=== PATIENT | female | born 1945 | race Caucasian/White ===

== ENCOUNTER → 2022-10-25 16:07 | Outpatient (BNVA) | payer MEDICARE, OTHER, SELFPAY | PROVIDERS: PCP Internal Medicine; Visit Provider Psychiatry & Neurology Psychiatry | DX: F32.89 Other specified depressive episodes (principal); F10.91 Alcohol use, unspecified, in remission; G47.00 Insomnia, unspecified | CPT/HCPCS: 90833; 99212 ==

== ENCOUNTER 2023-03-23 13:29 | Outpatient (AMB) | payer MEDICARE, OTHER, SELFPAY ==
--- NOTE | 2023-03-23 13:59 | MHC.OFFVISPS ---
Intake Intake Visit Reasons: depression Allergies sulfamethoxazole [From Bactrim] Allergy (Intermediate, Verified 10/25/22 15:15) Swelling trimethoprim [From Bactrim] Allergy (Intermediate, Verified 10/25/22 15:15) Swelling Medication List - Last Reconciled 03/23/23 by Juan Junior MD atorvastatin 80 mg PO DAILY bupropion HCl 200 mg PO QAM clonazepam 0.5 mg PO BEDTIME gabapentin 100 - 300 mg (1 - 3 x 100 mg) PO BEDTIME pantoprazole 40 mg PO DAILY ramelteon (Rozerem) 8 mg PO BEDTIME 90 days rizatriptan mg PO HPI- Psychiatric Chief Complaint: depression HPI Narrative: The patient continues to do quite well able to enjoy things focus concentrate gets along quite well with her . She has hobbies that she enjoys has remained sober for many years no significant mood episodes. Does have chronic insomnia that has not responded to multiple behavioral and medication interventions she has managed to live with this and work around at. 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 did respond somewhat to gabapentin Past Psychiatric History: Past history of depression chronic sleep disorder question history of mild hypomania Mental Status Exam Mental Status Exam Narrative: Mental Status Exam Narrative: Appearance: Casually dressed Behavior: Cooperative appropriate psychomotor: Within normal limits Speech: Normal volume and prosody Thought proccess logical and goal-directed Thought content: Future oriented no self-harming thoughts feels grateful about her life Mood: Euthymic Affect: Appropriate to mood full affect SI:denies HI:denies VH/AH:none Delusions: None Insight/judgment: Good insight and judgment Memory/cog: Intact Assessment and Plan Assessment & Plan (1) Depressive disorder, atypical: Status: Acute Code(s): F32.89 - Other specified depressive episodes (2) Insomnia disorder: Status: Acute Code(s): G47.00 - Insomnia, unspecified Plan Given discussed issues related to sleep hygiene behavioral management. We have discussed this previously including not staying in bed if not fall asleep. We discussed the use of rozerem a melatonin analog. Patient's quality of life generally good short-acting Wellbutrin in the morning will no mood cycling able to enjoy things could motivation Medications: New ramelteon (Rozerem) 8 mg PO BEDTIME 90 tabs 1RF 90 days Refilled bupropion HCl 200 mg PO QAM 90 tabs 1RF clonazepam 0.5 mg PO BEDTIME 90 tabs 1RF Counseling and coordination of Care Pt. Self Management counseling: Exercise, Maintenance-social rhythm and Sleep hygiene Diagnosis and Prognosis Counseling: Adequacy of current interventions Details: I spent [38] minutes reviewing the record, seeing the patient and documenting in the medical record. Counseling provided to the patient/caregiver as outlined below. Addressed patient/caregiver concerns regarding current medication regime including effective adherence. Addressed patient/caregiver concerns regarding diagnosis and prognosis including accuracy of diagnosis, prognosis over time, impact of diagnosis. Addressed patient/caregiver concerns regarding impact of recent stressors. [facility] Medical History (Updated 10/25/22 @ 21:50 by Juan Junior MD) Alcohol use disorder in remission Depressive disorder, atypical Insomnia disorder Social History: Patient is retired nurse Substance History: Past history of alcohol dependence Coding Level of Care Code Est Pt Level 3 (08950) Therapy 30m w/E&M (90417) Diagnoses Depressive disorder, atypical F32.89 Insomnia disorder G47.00
== END 2023-03-23 14:19 | disposition home or self-care (01) ==
LOC: HO.HOP 13:29
PROVIDERS: PCP Internal Medicine; Visit Provider Psychiatry & Neurology Psychiatry
DX: F32.89 Other specified depressive episodes (principal); G47.00 Insomnia, unspecified
CPT/HCPCS: 90833; 99213

== ENCOUNTER → 2023-03-23 13:29 | Outpatient (BNVA) | payer MEDICARE, OTHER, SELFPAY | PROVIDERS: PCP Internal Medicine; Visit Provider Psychiatry & Neurology Psychiatry | DX: F32.89 Other specified depressive episodes (principal); G47.00 Insomnia, unspecified; K14.6 Glossodynia | CPT/HCPCS: 90833; 99212 ==

== ENCOUNTER 2023-09-14 14:15 | Outpatient (AMB) | payer MEDICARE, OTHER, SELFPAY ==
--- NOTE | 2023-09-14 14:32 | MHC.OFFVISPS ---
Intake Intake Visit Reasons: DEPRESSION Allergies sulfamethoxazole [From Bactrim] Allergy (Intermediate, Verified 10/25/22 15:15) Swelling trimethoprim [From Bactrim] Allergy (Intermediate, Verified 10/25/22 15:15) Swelling Medication List - Last Reconciled 09/14/23 by Juan Junior MD atorvastatin 80 mg PO DAILY bupropion HCl 200 mg PO QAM clonazepam 0.5 mg PO BEDTIME gabapentin 100 - 300 mg (1 - 3 x 100 mg) PO BEDTIME gabapentin 300 mg PO DAILY pantoprazole 40 mg PO DAILY ramelteon (Rozerem) 8 mg PO BEDTIME 90 days rizatriptan mg PO HPI- Psychiatric Chief Complaint: DEPRESSION HPI Narrative: Pt seen in f/u mood stable HAS A NUMBER OF ACTIVITIES THAT SHE DOES ON A REGULAR BASIS GETS ALONG QUITE WELL WITH HER . Patient has chronic insomnia tends not to use sleep hygiene. The patient is on Wellbutrin with good effect did not try prescription melatonin analog does take gabapentin at bed time intermittent. She has over the past couple of years developed burning mouth syndrome gabapentin can be helpful with this Past Psychiatric History: Past history of depression chronic sleep disorder question history of mild hypomania Mental Status Exam Mental Status Exam Narrative: Mental Status Exam Narrative: Appearance: Casually dressed Behavior: Cooperative appropriate psychomotor: Within normal limits Speech: Normal volume and prosody Thought proccess logical and goal-directed Thought content: Future oriented no self-harming thoughts feels grateful about her life Mood: Euthymic Affect: Appropriate to mood full affect SI:denies HI:denies VH/AH:none Delusions: None Insight/judgment: Good insight and judgment Memory/cog: Intact Assessment and Plan Assessment & Plan (1) Alcohol use disorder in remission: Status: Acute Code(s): F10.91 - Alcohol use, unspecified, in remission (2) Depressive disorder, atypical: Status: Acute Code(s): F32.89 - Other specified depressive episodes (3) Insomnia disorder: Status: Acute Code(s): G47.00 - Insomnia, unspecified Plan Patient stable clear sensorium no significant change in cognitive status over time continue low-dose clonazepam Wellbutrin patient has been sober for many years encouraged appropriate sleep hygiene Counseling and coordination of Care Pt. Self Management counseling: Breathing and Sleep hygiene Details-Self Mgmt counseling: Reviewed sleep hygiene recommendations Details: I spent [37 minutes reviewing the record, seeing the patient and documenting in the medical record. Counseling provided to the patient/caregiver as outlined below. Addressed patient/caregiver concerns regarding current medication regime including effective adherence. Addressed patient/caregiver concerns regarding diagnosis and prognosis including accuracy of diagnosis, prognosis over time, impact of diagnosis. Addressed patient/caregiver concerns regarding impact of recent stressors. [facility] Medical History (Updated 10/25/22 @ 21:50 by Juan Junior MD) Alcohol use disorder in remission Depressive disorder, atypical Insomnia disorder Social History: Patient is retired nurse Substance History: Past history of alcohol dependence Coding Level of Care Code Est Pt Level 3 (50830) Therapy 30m w/E&M (69088) Diagnoses Alcohol use disorder in remission F10.91 Depressive disorder, atypical F32.89 Insomnia disorder G47.00
== END 2023-09-14 14:55 | disposition home or self-care (01) ==
LOC: HO.HOP 14:15
PROVIDERS: PCP Internal Medicine; Visit Provider Psychiatry & Neurology Psychiatry
DX: F10.91 Alcohol use, unspecified, in remission (principal); F32.89 Other specified depressive episodes; G47.00 Insomnia, unspecified
CPT/HCPCS: 90833; 99213

== ENCOUNTER → 2023-09-14 14:15 | Outpatient (BNVA) | payer MEDICARE, OTHER, SELFPAY | PROVIDERS: PCP Internal Medicine; Visit Provider Psychiatry & Neurology Psychiatry | DX: F32.89 Other specified depressive episodes (principal); G47.00 Insomnia, unspecified; F10.91 Alcohol use, unspecified, in remission | CPT/HCPCS: 90833; 99212 ==

== ENCOUNTER 2024-02-01 13:27 | Outpatient (AMB) | payer MEDICARE, OTHER, SELFPAY ==
--- NOTE | 2024-02-01 14:35 | A.OFFPSYCH_ITS ---
Intake Intake Visit Reasons: depression Allergies sulfamethoxazole [From Bactrim] Allergy (Intermediate, Verified 10/25/22 15:15) Swelling trimethoprim [From Bactrim] Allergy (Intermediate, Verified 10/25/22 15:15) Swelling HPI- Psychiatric Chief Complaint: depression HPI Narrative: Patient seen psychiatric follow-up. 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 Patient's social active in the [employer] social with her Past Psychiatric History: Past history of depression chronic sleep disorder question history of mild hypomania Mental Status Exam Mental Status Exam Narrative: Mental Status Exam Narrative: Appearance: Casually dressed Behavior: Cooperative appropriate psychomotor: Within normal limits Speech: Normal volume and prosody Thought proccess logical and goal-directed Thought content: Future oriented no self-harming thoughts feels grateful about her life Mood: Euthymic Affect: Appropriate to mood full affect SI:denies HI:denies VH/AH:none Delusions: None Insight/judgment: Good insight and judgment Memory/cog: Intact Assessment and Plan Assessment & Plan (1) Alcohol use disorder in remission: Status: Acute Code(s): F10.91 - Alcohol use, unspecified, in remission (2) Insomnia disorder: Status: Acute Code(s): G47.00 - Insomnia, unspecified (3) Depressive disorder, atypical: Status: Acute Code(s): F32.89 - Other specified depressive episodes Plan Patient quite stable no new medical problems. Continue to encourage socialization we try to lower clonazepam over time try and decrease 0.25 mg patient quite happy in life getting good satisfaction Medications: Changed From clonazepam 0.5 mg PO BEDTIME 90 tabs 1RF To clonazepam 0.25 - 0.5 mg (0.5 - 1 x 0.5 mg) PO BEDTIME PRN 90 tabs 1RF insomnia 90 days Refilled bupropion HCl SR 200 mg PO QAM 90 tabs 1RF clonazepam 0.25 - 0.5 mg (0.5 - 1 x 0.5 mg) PO BEDTIME PRN 90 tabs 1RF insomnia 90 days ramelteon (Rozerem) 8 mg PO BEDTIME 90 tabs 1RF 90 days bupropion HCl SR 200 mg PO QAM 90 tabs 1RF Counseling and coordination of Care Details-Self Mgmt counseling: Continue to be social and engaged future oriented enjoys multiple hobbies Medication management counseling: Effectiveness and Side effects Diagnosis and Prognosis Counseling: Accuracy of diagnosis and Adequacy of current interventions Details: I spent [33] minutes reviewing the record, seeing the patient and documenting in the medical record. Counseling provided to the patient/caregiver as outlined below. Addressed patient/caregiver concerns regarding current medication regime including effective adherence. Addressed patient/caregiver concerns regarding diagnosis and prognosis including accuracy of diagnosis, prognosis over time, impact of diagnosis. Addressed patient/caregiver concerns regarding impact of recent stressors. [facility] Medical History (Updated 10/25/22 @ 21:50 by Juan Junior MD) Alcohol use disorder in remission Depressive disorder, atypical Insomnia disorder Social History: Patient is retired nurse Substance History: Past history of alcohol dependence Coding Level of Care Code Est Pt Level 3 (25265) Therapy 30m w/E&M (55898) Diagnoses Alcohol use disorder in remission F10.91 Insomnia disorder G47.00 Depressive disorder, atypical F32.89
== END 2024-02-01 16:00 | disposition home or self-care (01) ==
LOC: HO.HOP 13:27
PROVIDERS: PCP Internal Medicine; Visit Provider Psychiatry & Neurology Psychiatry
DX: F10.91 Alcohol use, unspecified, in remission (principal); G47.00 Insomnia, unspecified; F32.89 Other specified depressive episodes
CPT/HCPCS: 90833; 99213

== ENCOUNTER → 2024-02-01 13:27 | Outpatient (BNVA) | payer MEDICARE, OTHER, SELFPAY | PROVIDERS: PCP Internal Medicine; Visit Provider Psychiatry & Neurology Psychiatry | DX: F32.89 Other specified depressive episodes (principal); F10.91 Alcohol use, unspecified, in remission; G47.00 Insomnia, unspecified; Z79.899 Other long term (current) drug therapy | CPT/HCPCS: 99212 ==

== ENCOUNTER 2024-11-12 12:08 | Outpatient (AMB) | payer MEDICARE, OTHER, SELFPAY ==
--- NOTE | 2024-11-12 14:04 | MHC.OFFVISPS ---
Intake Intake Visit Reasons: depression Allergies sulfamethoxazole [From Bactrim] Allergy (Intermediate, Verified 10/25/22 15:15) Swelling trimethoprim [From Bactrim] Allergy (Intermediate, Verified 10/25/22 15:15) Swelling Medication List - Last Reconciled 11/12/24 by Juan Junior MD alendronate mg PO bupropion HCl SR 200 mg PO QAM clonazepam 0.25 - 0.5 mg (0.5 - 1 x 0.5 mg) PO BEDTIME PRN 90 days gabapentin 100 - 300 mg (1 - 3 x 100 mg) PO BEDTIME gabapentin 300 mg PO DAILY pantoprazole 40 mg PO DAILY ramelteon (Rozerem) 8 mg PO BEDTIME 90 days rizatriptan mg PO rosuvastatin 10 mg PO DAILY HPI- Psychiatric Chief Complaint: depression HPI Narrative: Patient seen psychiatric follow-up. Patient has been in a agitated depressive state for the past 2 3 months. Periods of irritability agitation racing thoughts difficulty with sleep depressed mood difficulty with concentration. Has been isolated avoiding things she normally does marked difficulty functioning focusing difficulty with basic concentration has been taking clonazepam 0.5 at bedtime Wellbutrin 100 mg daily in the morning which she has been on for years no gross psychosis no active SI but periods of hopelessness helplessness despondency Has been very focused and preoccupied with having to put down a relatively young dog that she had become quite close with and because of aggression toward family members she eventually needed to put dog down and this apparently has triggered a significant episode. She does state she did think about this before it happened was not impulsive Past Psychiatric History: Past history of depression chronic sleep disorder question history of mild hypomania Mental Status Exam Mental Status Exam Patient Appearance: Well Grooomed Patient Orientation: Person, Place, Time and Situation Level of Consciousness: Awake and Appropriate Patient Behavior: Cooperative, Anxious and Distractible Mood Description: Depressed, Nervous and Apprehensive Affect Description: Constricted and Apprehensive Patient Cognition Impaired: Yes Ability to Follow Directions: Good Speech Pattern: Clear Memory Description: Intact and Working Impaired Hallucinations: None Delusions: Not Present Thought Process: Intact and Goal Oriented Thought Content: positive for Goal Oriented, positive for Preoccupation, negative for Suicidal Ideation or negative for Homicidal Ideation Depressive Symptoms: Increased Anxiety, Increased Irritability, Hopelessness, Increased Fatigue, Loss of Energy and Difficulty Concentrating Judgement: Fair Judgement and Insight: Difficulty with concentration attention racing thoughts no increase energy distractibility difficulty with focus Assessment and Plan Assessment & Plan (1) Insomnia disorder: Status: Acute Code(s): G47.00 - Insomnia, unspecified (2) Major depressive disorder, recurrent episode with mixed features: Status: Acute Code(s): F33.9 - Major depressive disorder, recurrent, unspecified Plan The patient has been somewhat confused agitated appears to be in something of a mixed state for the past couple of months. Problems with sleep racing thoughts irritability attention. Has had mixed states in the past did well on Seroquel but had developed mild lip smacking history of depression history of migraines past confusional states with Depakote gabapentin. State appears to be triggered by recent decision to put down a dog that she was quite close to who was aggressive with family members appears to have triggered a mixed depressive episode Patient agrees to low-dose olanzapine aware of tardive dyskinesia risk but this appears to be the only significant treatment that might be helpful when she is in a state like this that has responded well previously to low-dose Seroquel Risks benefits alternatives reviewed Medications: New olanzapine (Zyprexa) 2.5 mg PO BEDTIME 30 tabs 1RF Counseling and coordination of Care Pt. Self Management counseling: Breathing and Light exposure Details-Self Mgmt counseling: Issues related to feeling like she had to put her dog down secondary to aggression and what this has triggered Medication management counseling: Effectiveness, Side effects and Dosing range Diagnosis and Prognosis Counseling: Impact of diagnosis on life functions Details-Diagnosis/Prognosis counseling: Follow-up 2-3 weeks Details: I spent [42] minutes reviewing the record, seeing the patient and documenting in the medical record. Counseling provided to the patient/caregiver as outlined below. Addressed patient/caregiver concerns regarding current medication regime including effective adherence. Addressed patient/caregiver concerns regarding diagnosis and prognosis including accuracy of diagnosis, prognosis over time, impact of diagnosis. Addressed patient/caregiver concerns regarding impact of recent stressors. [facility] Medical History (Updated 12/07/24 @ 21:04 by Juan Junior MD) Alcohol use disorder in remission Depressive disorder, atypical Insomnia disorder Social History: Patient is retired nurse Substance History: Past history of alcohol dependence Coding Level of Care Code Est Pt Level 3 (71746) Therapy 30m w/E&M (28590) Diagnoses Insomnia disorder G47.00 Major depressive disorder, recurrent episode with mixed features F33.9
== END 2024-11-12 12:58 | disposition home or self-care (01) ==
LOC: HO.HOP 12:08
PROVIDERS: PCP Internal Medicine; Visit Provider Psychiatry & Neurology Psychiatry
DX: F33.1 Major depressive disorder, recurrent, moderate (principal); G47.00 Insomnia, unspecified
CPT/HCPCS: 90833; 99213

== ENCOUNTER → 2024-11-12 12:08 | Outpatient (BNVA) | payer MEDICARE, OTHER, SELFPAY | PROVIDERS: PCP Internal Medicine; Visit Provider Psychiatry & Neurology Psychiatry | DX: F33.9 Major depressive disorder, recurrent, unspecified (principal); G47.00 Insomnia, unspecified; Z71.89 Other specified counseling | CPT/HCPCS: 99212 ==

== ENCOUNTER 2024-11-26 14:28 | Outpatient (AMB) | payer MEDICARE, OTHER, SELFPAY ==
--- NOTE | 2024-11-26 18:05 | MHC.OFFVISPS ---
Intake Intake Visit Reasons: depression Allergies sulfamethoxazole [From Bactrim] Allergy (Intermediate, Verified 10/25/22 15:15) Swelling trimethoprim [From Bactrim] Allergy (Intermediate, Verified 10/25/22 15:15) Swelling HPI- Psychiatric Chief Complaint: depression HPI Narrative: Patient seen psychiatric follow-up. Over the past few months patient appeared to suffer from recurrent agitated depression something of a mixed state. The patient had done well previously on Seroquel but had developed mild lip smacking and that was discontinued. The patient was given a short course of olanzapine 2.5 mg in his feeling markedly much more like herself. She did stay in a course of olanzapine and discontinued she continues to feel stable. When thinking about the dog that she needed to youth denies she can put it in much better perspective and realize that she had do it because the dogs aggression Past Psychiatric History: Past history of depression chronic sleep disorder question history of mild hypomania Mental Status Exam Mental Status Exam Patient Appearance: Well Grooomed Patient Orientation: Person, Place, Time and Situation Level of Consciousness: Awake and Appropriate Patient Behavior: Appropriate and Cooperative Mood Description: Calm and Appropriate Affect Description: Calm and Appropriate Patient Cognition Impaired: Yes Ability to Follow Directions: Good Speech Pattern: Clear Memory Description: Intact and Working Impaired Hallucinations: None Delusions: Not Present Thought Process: Intact and Goal Oriented Thought Content: positive for Goal Oriented, positive for Preoccupation, negative for Suicidal Ideation or negative for Homicidal Ideation Depressive Symptoms: Increased Anxiety, Increased Irritability, Hopelessness, Increased Fatigue, Loss of Energy and Difficulty Concentrating Judgement: Fair Judgement and Insight: Difficulty with concentration attention racing thoughts no increase energy distractibility difficulty with focus Assessment and Plan Assessment & Plan (1) Depressive disorder, atypical: Status: Acute Code(s): F32.89 - Other specified depressive episodes Plan Patient feeling much more like herself. She does have chronic insomnia for awhile had done better with raloxifene. Discussed possible use of olanzapine p.r.n. occasionally. Lower Wellbutrin 100 mg daily. Discussed with patient. Has been on Depakote gabapentin in the past without benefit Discussed different strategies to maintain herself which she has done in the past consider mirtazapine but had not been helpful in years past Patient seems to be back at baseline follow-up 2 months Medications: New bupropion HCl SR 100 mg PO DAILY 90 tabs 1RF Discontinued bupropion HCl SR Discontinued Reason: Doctor's Order 200 mg PO QAM 90 tabs 1RF Counseling and coordination of Care Details: I spent [] minutes reviewing the record, seeing the patient and documenting in the medical record. Counseling provided to the patient/caregiver as outlined below. Addressed patient/caregiver concerns regarding current medication regime including effective adherence. Addressed patient/caregiver concerns regarding diagnosis and prognosis including accuracy of diagnosis, prognosis over time, impact of diagnosis. Addressed patient/caregiver concerns regarding impact of recent stressors. [facility] Medical History (Updated 12/07/24 @ 21:04 by Juan Junior MD) Alcohol use disorder in remission Depressive disorder, atypical Insomnia disorder Social History: Patient is retired nurse Substance History: Past history of alcohol dependence Coding Level of Care Code Est Pt Level 4 (98884) Diagnoses Depressive disorder, atypical F32.89
== END 2024-11-26 15:18 | disposition home or self-care (01) ==
LOC: HO.HOP 14:28
PROVIDERS: PCP Internal Medicine; Visit Provider Psychiatry & Neurology Psychiatry
DX: F32.89 Other specified depressive episodes (principal)
CPT/HCPCS: 99214

== ENCOUNTER → 2024-11-26 14:28 | Outpatient (BNVA) | payer MEDICARE, OTHER, SELFPAY | PROVIDERS: PCP Internal Medicine; Visit Provider Psychiatry & Neurology Psychiatry | DX: F32.89 Other specified depressive episodes (principal); Z71.89 Other specified counseling | CPT/HCPCS: 99212 ==

== ENCOUNTER 2025-01-20 12:23 | Outpatient (AMB) | payer MEDICARE, OTHER, SELFPAY ==
--- NOTE | 2025-01-20 12:43 | MHC.OFFVISPS ---
Intake Intake Visit Reasons: depression Allergies sulfamethoxazole [From Bactrim] Allergy (Intermediate, Verified 10/25/22 15:15) Swelling trimethoprim [From Bactrim] Allergy (Intermediate, Verified 10/25/22 15:15) Swelling Medication List - Last Reconciled 01/20/25 by Juan Junior MD alendronate mg PO aspirin 1 tab PO DAILY atorvastatin 20 mg PO DAILY bupropion HCl SR 200 mg PO QAM clonazepam 0.25 - 0.5 mg (0.5 - 1 x 0.5 mg) PO BEDTIME PRN 90 days gabapentin 100 - 300 mg (1 - 3 x 100 mg) PO BEDTIME metoprolol succinate ER 25 mg PO DAILY olanzapine (Zyprexa) 2.5 mg PO BEDTIME pantoprazole 40 mg PO DAILY ramelteon (Rozerem) 8 mg PO BEDTIME 90 days rizatriptan mg PO rosuvastatin 10 mg PO DAILY HPI- Psychiatric Chief Complaint: depression HPI Narrative: Patient seen psychiatric follow-up. Patient has generally been doing okay sleep chronically disrupted but functioning has much improved mood more stable. She is now on Toprol Lipitor and aspirin. Patient is on olanzapine which she took for a period of time has not needed currently continues on clonazepam at bedtime Past Psychiatric History: Past history of depression chronic sleep disorder question history of mild hypomania Assessment and Plan Assessment & Plan (1) Depressive disorder, atypical: Status: Acute Code(s): F32.89 - Other specified depressive episodes (2) Chronic insomnia: Status: Acute Code(s): F51.04 - Psychophysiologic insomnia Plan Patient did best on higher dose Wellbutrin 200 mg continue ramelton clonazepam patient is feeling at her baseline much improved Medications: New bupropion HCl SR 200 mg PO QAM 90 tabs 1RF Discontinued bupropion HCl SR Discontinued Reason: Doctor's Order 100 mg PO DAILY 90 tabs 1RF Counseling and coordination of Care Details-Self Mgmt counseling: Issues related to managing chronic stress Medication management counseling: Effectiveness and Side effects Diagnosis and Prognosis Counseling: Adequacy of current interventions Details: I spent [30] minutes reviewing the record, seeing the patient and documenting in the medical record. Counseling provided to the patient/caregiver as outlined below. Addressed patient/caregiver concerns regarding current medication regime including effective adherence. Addressed patient/caregiver concerns regarding diagnosis and prognosis including accuracy of diagnosis, prognosis over time, impact of diagnosis. Addressed patient/caregiver concerns regarding impact of recent stressors. [facility] Medical History (Updated 02/22/25 @ 23:25 by Juan Junior MD) Chronic insomnia Alcohol use disorder in remission Depressive disorder, atypical Insomnia disorder Social History: Patient is retired nurse Substance History: Past history of alcohol dependence Coding Level of Care Code Est Pt Level 4 (49479) Diagnoses Depressive disorder, atypical F32.89 Chronic insomnia F51.04
== END 2025-01-20 12:54 | disposition home or self-care (01) ==
LOC: HO.HOP 12:23
PROVIDERS: PCP Internal Medicine; Visit Provider Psychiatry & Neurology Psychiatry
DX: F32.89 Other specified depressive episodes (principal); F51.04 Psychophysiologic insomnia
CPT/HCPCS: 99214

== ENCOUNTER → 2025-01-20 12:23 | Outpatient (BNVA) | payer MEDICARE, OTHER, SELFPAY | PROVIDERS: PCP Internal Medicine; Visit Provider Psychiatry & Neurology Psychiatry | DX: F32.89 Other specified depressive episodes (principal); F51.04 Psychophysiologic insomnia | CPT/HCPCS: 99212 ==

== ENCOUNTER 2025-05-20 12:59 | Outpatient (AMB) | payer MEDICARE, OTHER, SELFPAY ==
--- NOTE | 2025-05-20 13:36 | A.OFFPSYCH_ITS ---
Intake Intake Visit Reasons: depression Allergies sulfamethoxazole (From Bactrim) Allergy (Intermediate, Verified 10/25/22 15:15) Swelling trimethoprim (From Bactrim) Allergy (Intermediate, Verified 10/25/22 15:15) Swelling HPI- Psychiatric Chief Complaint: depression HPI Narrative: Patient seen psychiatric follow-up. Patient has generally been doing well sleep improved cognitively intact mood has been much more stable. No significant periods of depression or agitation. Patient has adopted another dog has made peace with what happened with her prior dog. Not ruminating anxiety under good control no new medical concerns Past Psychiatric History: Past history of depression chronic sleep disorder question history of mild hypomania Mental Status Exam Mental Status Exam Patient Appearance: Well Grooomed Patient Orientation: Person, Place, Time and Situation Level of Consciousness: Awake and Appropriate Patient Behavior: Appropriate and Cooperative Mood Description: Calm and Appropriate Affect Description: Calm and Appropriate Patient Cognition Impaired: Yes Ability to Follow Directions: Good Speech Pattern: Clear Memory Description: Intact Hallucinations: None Delusions: Not Present Thought Process: Intact and Goal Oriented Thought Content: positive for Goal Oriented, positive for Preoccupation, negative for Suicidal Ideation or negative for Homicidal Ideation Judgement: Good Judgement and Insight: Patient doing well able to focus and attend Assessment and Plan Assessment & Plan (1) Depressive disorder, atypical: Status: Acute Code(s): F32.89 - Other specified depressive episodes (2) Insomnia disorder: Status: Acute Code(s): G47.00 - Insomnia, unspecified Plan Patient only took olanzapine briefly gabapentin not helpful continue bupropion clonazepam at HS Patient stable doing well continue plan of care may continue with primary care physician as possible Medications: Refilled bupropion HCl SR 200 mg PO QAM 90 tabs 1RF Discontinued gabapentin Discontinued Reason: Patient Completed Course 100 - 300 mg (1 - 3 x 100 mg) PO BEDTIME 270 caps 1RF olanzapine Discontinued Reason: More recent result 2.5 mg PO BEDTIME 30 tabs 1RF Counseling and coordination of Care Details-Self Mgmt counseling: Issues related to chronic insomnia Diagnosis and Prognosis Counseling: Accuracy of diagnosis, Prognosis over time and Adequacy of current interventions Details: I spent [33] minutes reviewing the record, seeing the patient and documenting in the medical record. Counseling provided to the patient/caregiver as outlined below. Addressed patient/caregiver concerns regarding current medication regime including effective adherence. Addressed patient/caregiver concerns regarding diagnosis and prognosis including accuracy of diagnosis, prognosis over time, impact of diagnosis. Addressed patient/caregiver concerns regarding impact of recent stressors. 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
== END 2025-05-20 13:55 | disposition home or self-care (01) ==
LOC: HO.HOP 12:59
PROVIDERS: PCP Internal Medicine; Visit Provider Psychiatry & Neurology Psychiatry
DX: F32.89 Other specified depressive episodes (principal); G47.00 Insomnia, unspecified
CPT/HCPCS: 99214

== ENCOUNTER → 2025-05-20 12:59 | Outpatient (BNVA) | payer MEDICARE, OTHER, SELFPAY | PROVIDERS: PCP Internal Medicine; Visit Provider Psychiatry & Neurology Psychiatry | DX: F32.89 Other specified depressive episodes (principal); G47.00 Insomnia, unspecified | CPT/HCPCS: 99212 ==